=== PATIENT | female | born 1985 | race Caucasian/White ===

== ENCOUNTER 2018-09-22 07:32 | Outpatient (CLI) | payer OTHER ==
[~2018-09-22] VITALS: Ht 160 cm; Wt 79.4 kg
[2018-09-22 08:44] VITALS: Ht 160 cm; Wt 79.4 kg
[2018-09-22] MEDS ORDERED: PNV11TAB PO (08:44)
[2018-09-22 08:45] VITALS: BP 127/75; PULSE 85; RESP 18
[2018-09-22] MEDS ORDERED: TERBUTALINE 1 MG/ML INJ SC ONE (10:30)
[2018-09-22] MEDS ORDERED: LACTATED RINGER'S 1,000 ML IV SCH ×2 (10:30→12:30)
--- NOTE | 2018-09-22 14:07 | PN ---
Triage Information Date/Time 09/22/18 Reason for visit: Uterine contractions Weeks of Gestation 28w1d /Para Diabetes: none Objective Vital Signs Date Temp Pulse Resp B/P (MAP) Pulse Ox O2 O2 Flow FiO2 Time Delivery Rate 09/22/18 98.1 85 18 127/75 08:45 (92) Results/Medications Result Diagram: 09/22/18 0852 Results 24 hrs Laboratory Tests Test 09/22/18 08:00 09/22/18 08:52 Urine Color YELLOW Urine Clarity SLIGHTLY CLOUDY A Urine pH 6.0 Urine Specific [place] 1.017 Urine Ketones NEGATIVE Urine Nitrite NEGATIVE Urine Bilirubin NEGATIVE Urine Urobilinogen NEGATIVE Urine Leukocyte Esterase 1+ H Urine Microscopic RBC 1 Urine Microscopic WBC 4 Urine Squamous Epithelial Cells MANY A Urine Bacteria FEW A Urine Mucus FEW A Urine Hemoglobin NEGATIVE Urine Glucose NEGATIVE Urine Total Protein NEGATIVE White Blood Count 9.6 Red Blood Count 3.27 L Hemoglobin 10.1 L Hematocrit 30.8 L Mean Corpuscular Volume 94.2 Mean Corpuscular Hemoglobin 30.9 Mean Corpuscular Hemoglobin Concent 32.8 Red Cell Distribution Width 13.1 Platelet Count 292 Mean Platelet Volume 10.0 Immature Granulocytes % 1.400 H Neutrophils % 70.9 Lymphocytes % 17.9 Monocytes % 7.5 Eosinophils % 1.8 Basophils % 0.5 Nucleated Red Blood Cells % 0.0 Immature Granulocytes # 0.130 H Neutrophils # 6.8 Lymphocytes # 1.7 Monocytes # 0.7 Eosinophils # 0.2 Basophils # 0.1 Nucleated Red Blood Cells # 0.0 Medications tIV hydration with x1 terbutaline 0.25 Imaging Results BPP 8/8 KAREN 16.1 CVL 3.9 Disposition: Discharge Assessment/Plan A IUP 28w1d R/O PTL resolved P discharge home with RTW on tuesday drink more water SANDER OLIVEIRA MD Sep 22, 2018 14:07
--- NOTE | 2018-09-22 14:30 | TRIAGE ---
OB Triage Datetime Report Generated by CPN: 09/22/2018 14:30 Datetime: 09/22/2018 12:35 Stage of : OB Triage Datetime: 09/22/2018 12:02 Labor Evaluation Frequency: 0 Monitor Mode: External Pattern: Normal: <= 5 Contractions in 10 Minutes Resting Tone [place]: Relaxed Heart Rate FHR Baseline Rate: 145 Monitor Mode: External US Variability: Moderate 6-25 bpm Accelerations: 10X10 Decelerations: None Category: Category I Pain Assessment Pain Scale: 0 Pain Presence: None/Denies Pain Type: N/A Pain Goal: 3 Pain Relief Measures: Comfort Measures Datetime: 09/22/2018 10:55 Labor Evaluation Frequency: 4-6 Monitor Mode: External Duration (sec)2399: 50-60 Pattern: Normal: <= 5 Contractions in 10 Minutes Resting Tone [place]: Relaxed Heart Rate FHR Baseline Rate: 145 Monitor Mode: External US Variability: Moderate 6-25 bpm Accelerations: 10X10 Decelerations: None Category: Category I Pain Assessment Pain Scale: 4 Pain Presence: Intermittent Pain Type: Cramping Pain Location: Perineum Pain Goal: 3 Pain Relief Measures: Comfort Measures Datetime: 09/22/2018 10:09 Stage of : OB Triage Datetime: 09/22/2018 09:48 Labor Evaluation Frequency: 0 Monitor Mode: External Pattern: Normal: <= 5 Contractions in 10 Minutes Resting Tone [place]: Relaxed Heart Rate FHR Baseline Rate: 145 Monitor Mode: External US Variability: Moderate 6-25 bpm Accelerations: 10X10 Decelerations: None Category: Category I Pain Assessment Pain Scale: 0 Pain Presence: None/Denies Pain Type: N/A Pain Goal: 3 Pain Relief Measures: Comfort Measures Datetime: 09/22/2018 09:00 Labor Evaluation Frequency: X2 Monitor Mode: External Duration (sec)2399: 40 Pattern: Normal: <= 5 Contractions in 10 Minutes Resting Tone [place]: Relaxed Heart Rate FHR Baseline Rate: 150 Monitor Mode: External US Variability: Moderate 6-25 bpm Accelerations: 10X10 Decelerations: None Category: Category I Pain Assessment Pain Scale: 4 Pain Presence: Intermittent Pain Type: Cramping Pain Location: Abdomen Pain Goal: 3 Pain Relief Measures: Comfort Measures Datetime: 09/22/2018 08:26 Stage of : OB Triage Datetime: 09/22/2018 07:54 Stage of : OB Triage Assessment Type: Triage Maternal Assessment Level of Consciousness: Keenly Alert, Responsive DTR's/Clonus: DTRs 2+; No Clonus Headache: Denies Blurred Vision: No Respiratory Effort: Unlabored; Regular Rhythm; Equal Expansion Breath Sounds, Left: Clear and Equal Breath Sounds, Right: Clear and Equal Nausea/Vomiting: Denies RUQ Epigastric Pain: Denies Facial Edema: None Temperature Route: Axillary Fall Risk Assessment History of Falling: (0) No Secondary Diagnosis: (0) No Ambulatory Aid: (0) Bedrest/Nurse Assist IV Therapy: (0) No Gait: (0) Normal/Bedrest/Immobile Mental Status: (0) Oriented to Own Ability Fall Score: 0 Fall Risk Score Definition: No Risk: No action required Labor Evaluation Frequency: 0 Monitor Mode: External Pattern: Normal: <= 5 Contractions in 10 Minutes Resting Tone [place]: Relaxed Heart Rate FHR Baseline Rate: 145 Monitor Mode: External US Variability: Moderate 6-25 bpm Decelerations: None Category: Category I Pain Assessment Pain Scale: 4 Pain Presence: Intermittent Pain Type: Cramping Pain Location: Perineum Pain Goal: 3 Pain Relief Measures: Comfort Measures Datetime: 09/22/2018 07:52 Time of Arrival: 09/22/2018 07:28 EGA: 28.1 Arrived By: Ambulatory Arrived From: Home Chief Complaint: C/O CRAMPING SINCE APPROX 6AM EVERY FEW MINUTES, DENIES BLEEDING OR LEAKING Movement: Present Contractions: Denies/Absent Rupture of Membranes: Denies Vaginal Bleeding: None Vaginal Discharge: Denies Recent Sexual Intercouse: Denies Abdominal Trauma: Not Applicable Patient Complaints: Cramping Time Provider Notified: 09/22/2018 08:26 Provider Notified: UMER Initial Plan: MONITOR, UA C_S, CBC, BPP
== END 2018-09-22 12:50 | disposition home or self-care (01) ==
LOC: OBT 07:32 → L-D 07:34 → OBT 12:50
PROVIDERS: ATTEND Obstetrics & Gynecology
DX: O62.9 Abnormality of forces of labor, unspecified (principal); Z3A.28 28 weeks gestation of pregnancy
CPT/HCPCS: 76817; 76818; 81001; 85025; 87086; G0463; J3105; J7120

== ENCOUNTER 2018-11-08 15:39 | Outpatient (CLI) | payer OTHER, MEDICAID ==
[~2018-11-08 15:39] MED LIST: PNV11TAB PO
--- NOTE | 2018-11-08 23:56 | TRIAGE ---
OB Triage Datetime Report Generated by CPN: 11/08/2018 23:55 Datetime: 11/08/2018 19:42 Labor Evaluation Frequency: OCCASIONAL Monitor Mode: External Duration (sec)2399: 50-90 Quality: Mild Resting Tone [place]: Relaxed Contraction Comments: [place] REMOVED Heart Rate FHR Baseline Rate: 145 Variability: Moderate 6-25 bpm Accelerations: 15X15 Decelerations: None Category: Category I Comments: US REMOVED Datetime: 11/08/2018 19:29 Vaginal Exam Dilatation (cms): 0.0 Datetime: 11/08/2018 19:15 Assessment Type: Triage Maternal Assessment Level of Consciousness: Keenly Alert, Responsive DTR's/Clonus: DTRs 2+; No Clonus Headache: Denies Blurred Vision: No Respiratory Effort: Unlabored; Regular Rhythm; Equal Expansion Breath Sounds, Left: Clear and Equal Breath Sounds, Right: Clear and Equal Nausea/Vomiting: Denies RUQ Epigastric Pain: Denies Lower Extremities Edema: None Degree: None Upper Extremities Edema: None Degree: None Facial Edema: None Fall Risk Assessment History of Falling: (0) No Secondary Diagnosis: (0) No Ambulatory Aid: (0) Bedrest/Nurse Assist IV Therapy: (0) No Gait: (0) Normal/Bedrest/Immobile Mental Status: (0) Oriented to Own Ability Fall Score: 0 Fall Risk Score Definition: No Risk: No action required Datetime: 11/08/2018 18:30 Maternal Assessment Level of Consciousness: Keenly Alert, Responsive Labor Evaluation Frequency: 5-7 Monitor Mode: External Duration (sec)2399: 60-100 Quality: Mild Pattern: Normal: <= 5 Contractions in 10 Minutes Resting Tone [place]: Relaxed Heart Rate FHR Baseline Rate: 140 Monitor Mode: External US Variability: Moderate 6-25 bpm Accelerations: 15X15 Decelerations: None Pain Assessment Pain Scale: 4 Pain Presence: Intermittent Pain Type: Contraction Pain Location: Abdomen Pain Goal: 4 Pain Relief Measures: Comfort Measures Datetime: 11/08/2018 17:22 Maternal Assessment Level of Consciousness: Keenly Alert, Responsive Labor Evaluation Frequency: 6-7 Monitor Mode: External Duration (sec)2399: 60-100 Quality: Mild Pattern: Normal: <= 5 Contractions in 10 Minutes Resting Tone [place]: Relaxed Heart Rate FHR Baseline Rate: 130 Monitor Mode: External US Variability: Moderate 6-25 bpm Accelerations: 15X15 Decelerations: None Category: Category I Pain Assessment Pain Scale: 4 Pain Presence: Intermittent Pain Type: Contraction Pain Location: Abdomen Pain Goal: 4 Pain Relief Measures: Comfort Measures Datetime: 11/08/2018 16:49 Maternal Assessment Level of Consciousness: Keenly Alert, Responsive DTR's/Clonus: DTRs 2+; No Clonus Headache: Denies Blurred Vision: No Respiratory Effort: Unlabored; Regular Rhythm; Equal Expansion Breath Sounds, Left: Clear and Equal Breath Sounds, Right: Clear and Equal Nausea/Vomiting: Denies RUQ Epigastric Pain: Denies Lower Extremities Edema: None Degree: None Upper Extremities Edema: None Degree: None Facial Edema: None Fall Risk Assessment History of Falling: (0) No Secondary Diagnosis: (0) No Ambulatory Aid: (0) Bedrest/Nurse Assist IV Therapy: (0) No Gait: (0) Normal/Bedrest/Immobile Mental Status: (0) Oriented to Own Ability Fall Score: 0 Fall Risk Score Definition: No Risk: No action required Datetime: 11/07/2018 08:51 Time of Arrival: 11/08/2018 15:18 EGA: 34.6 Arrived By: Ambulatory Arrived From: Home Chief Complaint: DECREASED MOVEMENT Movement: Decreased Contractions: Occasional Time Contractions Began: 11/08/2018 15:00 Rupture of Membranes: Denies Vaginal Bleeding: None Vaginal Discharge: Denies Recent Sexual Intercouse: Denies Abdominal Trauma: Not Applicable Patient Complaints: None Initial Plan: BPP Datetime: 09/22/2018 07:54 Fall Score: 0 Fall Risk Score Definition: No Risk: No action required Datetime: 09/22/2018 07:52 EGA: 28.1
--- NOTE | 2018-11-09 00:21 | PN ---
Triage Information Date/Time November 08, 2018 Reason for visit: DFM Weeks of Gestation 34 weeks and 6 days /Para 2 para 1 Diabetes: none Hypertention: none Additional information 33-year-old G2, P1 with IUP at 34 weeks and 6 days with history of x1 presents with complaint of decreased movement. Antepartum course was co mplicated only for low Pap a. She denies any contraction, leaking of fluid vaginal bleeding or any other complaints. Objective Heart Rate: 130's Heart Rate Comments Category 1 Exam Appearance: Alert and oriented x4 does not appear to be in any acute distress Abdomen: Soft, gravid, fundal height consider gestational age NST: Category 1 BPP: 11/09 KAREN: 8.3 Cervix, closed and long Results/Medications Results 24 hrs Laboratory Tests Test 11/08/18 19:39 Urine Color STRAW Urine Clarity SLIGHTLY CLOUDY A Urine pH 6.0 Urine Specific [place] 1.003 Urine Ketones NEGATIVE Urine Nitrite NEGATIVE Urine Bilirubin NEGATIVE Urine Urobilinogen NEGATIVE Urine Leukocyte Esterase NEGATIVE Urine Microscopic RBC 2 Urine Microscopic WBC 3 Urine Squamous Epithelial Cells FEW Urine Bacteria FEW A Urine Hemoglobin NEGATIVE Urine Glucose NEGATIVE Urine Total Protein NEGATIVE Imaging Results PROCEDURE: US OB biophysical profile. CLINICAL INDICATION: decreased movements, TECHNIQUE: Multiple sonographic images of the pelvis were obtained. The images were reviewed on a PACS workstation. COMPARISON: 09/22/2018 FINDINGS: There is a single live intrauterine gestation. Cardiac activity is present with 146 beats per minute. There is a vertex presentation. The placenta is anterior. There is no evidence of placental abruption. KAREN = 8.3 cm. Biophysical profile: movement 2/2 tone 2/2. breathing 2/2 KAREN 2/2 Total 11/09 RPTAT: AA . IMPRESSION: Normal biophysical profile. Disposition: Discharge Assessment/Plan 34 weeks and 6 days History of x1, no evidence of labor Decreased movement testing reassuring Low [place]- patient being followed by clinic Stable for discharge home. DC home Follow-up in 48 hours with primary OB clinic or sooner as needed Strict labor precautions and kick count discussed with patient Patient verbalized understanding. All questions answered to patient's with satisfaction. ARDALAN,MORENITA MD Nov 09, 2018 00:20
== END 2018-11-08 20:06 | disposition home or self-care (01) ==
LOC: L-D 15:39 → OBT 15:39 → L-D 16:44 → OBT 20:06
PROVIDERS: ATTEND Obstetrics & Gynecology
DX: O36.8130 Decreased fetal movements, third trimester, not applicable or unspecified (principal); Z3A.34 34 weeks gestation of pregnancy
CPT/HCPCS: 76818; 81001; G0463; 81003

== ENCOUNTER 2018-11-29 11:26 | Outpatient (CLI) | payer OTHER, MEDICAID ==
[~2018-11-29] VITALS: Ht 160 cm; Wt 88.5 kg
[~2018-11-29 11:26] MED LIST changes: +ACET325T33 PO; +IBUP800T48 PO
[2018-11-29 12:33] VITALS: Ht 160 cm; Wt 88.5 kg
[2018-11-29 12:34] VITALS: BP 135/94; PULSE 76
== END 2018-11-29 12:45 | disposition home or self-care (01) ==
LOC: L-D 11:26 → OBT 11:26 → L-D 11:44 → OBT 12:45
PROVIDERS: ATTEND Obstetrics & Gynecology
DX: O47.1 False labor at or after 37 completed weeks of gestation (principal); Z3A.37 37 weeks gestation of pregnancy
CPT/HCPCS: G0463

== ENCOUNTER 2018-12-05 22:45 | Inpatient (IN) | payer MEDICAID, OTHER ==
[~2018-12-05] VITALS: Ht 157.5 cm; Wt 89.8 kg
[2018-12-05 23:43] VITALS: BP 115/60; PULSE 86; RESP 18; BMI 40.0
[2018-12-06] MEDS ORDERED: MAGNESIUM SULFATE 20 GM/500 ML 500 ML IV SCH ×2 (00:01→17:46)
[2018-12-06 00:06] VITALS: Ht 157.5 cm; Wt 89.8 kg
[2018-12-06 00:07] VITALS: BP 140/108; PULSE 73; RESP 18
[2018-12-06] MEDS ORDERED: MISOPROSTOL 200 MCG TAB PR PRN ×2 (00:30→20:30)
[2018-12-06] MEDS ORDERED: OXYTOCIN 30 UNITS/LR 500 ML IV SCH (00:30)
[2018-12-06] MEDS ORDERED: OXYTOCIN 30 UNITS/LR 500 ML IV PRN ×2 (00:30→20:30)
[2018-12-06] MEDS ORDERED: CARBOPROST 250 MCG INJ IM PRN ×2 (00:30→20:30)
[2018-12-06] MEDS ORDERED: MAGNESIUM SULFATE 4 GM/100 ML 100 ML IV ONE (00:30)
[2018-12-06] MEDS ORDERED: MAGNESIUM SULFATE 40GM/1000ML 1,000 ML IV SCH (00:30)
[2018-12-06] MEDS ORDERED: METHYLERGONOVINE 0.2 MG INJ IM PRN ×2 (00:30→20:30)
[2018-12-06] MEDS: LACTATED RINGER'S 1,000 ML IV SCH ×4 (02:43→11:18)
[2018-12-06] MEDS ORDERED: CEFAZOLIN 2 GM/50 ML (PMX) 50 ML IVPB SCH (04:00)
[2018-12-06] MEDS ORDERED: morphine SULFATE/PF (10 MG/10 ML) INJ ONE (15:42)
[2018-12-06] MEDS ORDERED: EPHEDrine 25 MG/5 ML SYG ONE (15:42)
[2018-12-06] MEDS ORDERED: PHENYLephrine (100 MCG/ML) 10ML SYG ONE (15:42)
[2018-12-06] MEDS ORDERED: ONDANSETRON 4 MG INJ ONE (16:09)
[2018-12-06] MEDS ORDERED: METOCLOPRAMIDE 10 MG INJ ONE (16:09)
[2018-12-06] MEDS ORDERED: METOCLOPRAMIDE 10 MG INJ IV PRN (16:30)
[2018-12-06] MEDS ORDERED: DIPHENHYDRAMINE 50 MG INJ IV PRN ×2 (16:30)
[2018-12-06] MEDS ORDERED: ONDANSETRON 4 MG INJ IV PRN ×2 (16:30)
[2018-12-06] MEDS ORDERED: FENTAnyl 50 MCG/ML VIAL IV PRN ×2 (16:30)
[2018-12-06] MEDS ORDERED: NALOXONE (0.4 MG/ML) INJ IV PRN (16:30)
[2018-12-06] MEDS ORDERED: HYDROmorphONE 1 MG/5 ML IV SYRINGE IV PRN ×2 (16:30)
[2018-12-06] MEDS ORDERED: KETOROLAC 30 MG INJ IV PRN (16:30)
[2018-12-06] MEDS ORDERED: ALBUTEROL 0.083% (NEB) 2.5 MG/3 ML AMP HHN PRN (16:30)
[2018-12-06] MEDS ORDERED: HYDROmorphONE 0.5 MG/0.5 ML SYG IV PRN ×2 (16:30)
[2018-12-06] MEDS ORDERED: ACETAMINOPHEN 500 MG TAB PO STA (17:01)
[2018-12-06] MEDS ORDERED: KETOROLAC 30 MG INJ IV STA (17:01)
[2018-12-06] MEDS ORDERED: AZITHROMYCIN 500MG/NS (PMX) 250 ML IVPB ONE (17:30)
[2018-12-06] MEDS: MAGNESIUM SULFATE 40GM/1000ML 1,000 ML IV SCH (18:22)
[2018-12-06] MEDS ORDERED: LACTATED RINGER'S 1,000 ML IV SCH (20:04)
[2018-12-06] MEDS ORDERED: NA PHOSPHATE/BIPHOS 133 ML ENEMA PR PRN (20:30)
[2018-12-06] MEDS ORDERED: HYDROCODONE/APAP (5/325) TAB PO PRN (20:30)
[2018-12-06] MEDS ORDERED: LANOLIN HPA 1 PKT TOP PRN (20:30)
[2018-12-06] MEDS ORDERED: OXYCODONE/ACETAMINOPHEN (5/325) TAB PO PRN (20:30)
[2018-12-06 20:40] VITALS: BP 144/88; PULSE 72; RESP 17
[2018-12-06] MEDS: SENNA/DOCUSATE NA (8.6MG/50MG) TAB PO SCH (21:00)
[2018-12-06 22:00] VITALS: BP 145/97; PULSE 73; RESP 17
[2018-12-06 23:00] VITALS: BP 136/89; PULSE 66; RESP 18
[2018-12-07] VITALS (17 sets, daily range): BP systolic 130–144; BP diastolic 68–87; PULSE 63–79; RESP 16–19
[2018-12-07] MEDS: CEFAZOLIN 2 GM/50 ML (PMX) 50 ML IVPB SCH ×3 (01:05→17:55)
[2018-12-07] MEDS: MAGNESIUM SULFATE 40GM/1000ML 1,000 ML IV SCH (01:08)
[2018-12-07] MEDS: LACTATED RINGER'S 1,000 ML IV SCH ×2 (02:41→11:00)
[2018-12-07] MEDS: CLINDAMYCIN 300 MG CAP PO SCH ×4 (06:00→17:55)
[2018-12-07] MEDS: KETOROLAC 30 MG INJ IV PRN ×2 (06:21→15:00)
[2018-12-07] MEDS: SENNA/DOCUSATE NA (8.6MG/50MG) TAB PO SCH ×2 (10:06→20:19)
[2018-12-07] MEDS ORDERED: BISACODYL 10 MG SUPP PR ONE (10:30)
[2018-12-07] MEDS: IBUPROFEN 800 MG TAB PO SCH (22:00)
[2018-12-08 04:00] VITALS: BP 135/92; PULSE 88; RESP 18
[2018-12-08] MEDS: CLINDAMYCIN 300 MG CAP PO SCH ×4 (05:12→18:17)
[2018-12-08] MEDS: IBUPROFEN 800 MG TAB PO SCH ×3 (05:12→21:46)
[2018-12-08] MEDS: LACTATED RINGER'S 1,000 ML IV SCH ×2 (07:00→18:41)
[2018-12-08 08:00] VITALS: BP 123/85; PULSE 76; RESP 16
[2018-12-08] MEDS: SENNA/DOCUSATE NA (8.6MG/50MG) TAB PO SCH ×2 (10:03→21:46)
[2018-12-08 16:04] VITALS: BP 122/76; PULSE 80; RESP 16
[2018-12-08] MEDS ORDERED: ACETAMINOPHEN 325 MG TAB PO PRN (17:30)
[2018-12-08 19:50] VITALS: BP 125/79; PULSE 91; RESP 19
[2018-12-09] MEDS: CLINDAMYCIN 300 MG CAP PO SCH ×2 (00:08→05:42)
[2018-12-09 03:50] VITALS: BP 136/81; PULSE 69; RESP 19
[2018-12-09] MEDS: IBUPROFEN 800 MG TAB PO SCH (05:42)
[2018-12-09 08:15] VITALS: BP 142/82; PULSE 75; RESP 16
[2018-12-09] MEDS: SENNA/DOCUSATE NA (8.6MG/50MG) TAB PO SCH (09:00)
[2018-12-09] MEDS ORDERED: MEASLES,MUMPS,RUBELLA VACCINE INJ SC* ONE (09:00)
[2018-12-09] MEDS ORDERED: DIPHTH/TET/ACEL PERTUSS (ADULT) 0.5 ML VIAL IM* ONE (09:00)
== END 2018-12-09 13:05 | disposition home or self-care (01) | DRG 788 ==
LOC: OBT 22:45 → L-D 22:46 → OBT 23:50 → L-D 23:50 → PP1 12-06 20:48
PROVIDERS: ADMIT Obstetrics & Gynecology; ATTEND Obstetrics & Gynecology
PROC: 10D00Z1 Extraction of Products of Conception, Low, Open Approach (ICD-10-PCS; principal; 2018-12-06 16:45)
DX: O13.3 Gestational [pregnancy-induced] hypertension without significant proteinuria, third trimester (principal); Z3A.38 38 weeks gestation of pregnancy; Z37.0 Single live birth; O34.211 Maternal care for low transverse scar from previous cesarean delivery
CPT/HCPCS: 80053; 81001; 83735; 84560; 85025; 85610; 85730; 86592; 86850; 86900; 86901; 99464; G0463; J0456; J0690; J1885; J2274; J2370; J2405; J2590; J2765; J7120